=== PATIENT | female | born 1980 | race African-American/Black ===

== ENCOUNTER 2017-06-15 11:32 | Emergency (ER) | payer MEDICAID ==
[~2017-06-15] VITALS: Ht 160 cm; Wt 90.5 kg
[2017-06-15 11:35] VITALS: BP 130/87; PULSE 95; RESP 12; TEMP 98.1; O2SAT 98
[2017-06-15 12:26] LABS: ALT (GPT) 18 U/L (10-53); ANION GAP 5 MEQ/L (5-15); AST (GOT) 8 U/L (15-37); BICARBONATE 28.6 MEQ/L (21.0-32.0); BLOOD UREA NITROGEN 15 MG/DL (7-18); CHLORIDE 104 MEQ/L (98-107); GLOMERULAR FILTRATION RATE 67 ML/MIN (>89); POTASSIUM 3.7 MEQ/L (3.5-5.1); SODIUM (NA) 138 MEQ/L (136-145)
[2017-06-15 12:29] LABS: ALKALINE PHOSPHATASE 109 U/L (45-117); TOTAL BILIRUBIN ADULT 0.2 MG/DL (0.2-1.0)
[2017-06-15 13:12] LABS: AUTOMATED NEUTROPHIL # 8.5 TH/MM3 (1.8-7.7); BASOPHIL # 0.1 TH/MM3 (0-0.2); BASOPHIL % 0.4 % (0.0-2.0); EOSINOPHIL # 0.1 TH/MM3 (0-0.4); HEMATOCRIT 34.4 % (35.0-46.0); HEMO FLAGS DIFF FINAL; LYMPH % 17.8 % (9.0-44.0); LYMPHOCYTE # 2.1 TH/MM3 (1.0-4.8); MEAN CELL VOLUME 80.4 FL (80.0-100.0); MEAN CORPUSCULAR HEMOGLOBIN 26.4 PG (27.0-34.0); MEAN CORPUSCULAR HGB CONC 32.8 % (32.0-36.0); NEUT % 70.8 % (16.0-70.0); PLATELET COUNT 229 TH/MM3 (150-450); RED BLOOD COUNT 4.28 MIL/MM3 (4.00-5.30); RED CELL DISTRIBUTION WIDTH 14.1 % (11.6-17.2); WHITE BLOOD COUNT 12.1 TH/MM3 (4.0-11.0)
--- NOTE | 2017-06-15 15:04 | PD ---
HPI Chief Complaint: Headache Time Seen by Provider: 14:41 Travel History International Travel<30 days: No Contact w/Intl Traveler<30days: No Traveled to known affect area: No History of Present Illness HPI 36-year-old female with PMH of HTN, chronic back pain presents to ED for evaluation of global headache. Gradual onset 12 days ago after the patient had lumbar epidural steroid injection in [place]. She endorses accompanying blurred vision, photophobia, nausea. She also complains of back pain, weakness and unsteady gait. She endorses chills but has not measured her temperature at home. She was seen at the hospital in [place] 4 days ago and prescribed Zofran and ibuprofen. She's been noncompliant with these medications , stating "they didn't help." PFSH Past Medical History ?: Not LMP: 05/21/17 Social History Tobacco Use: No Allergies-Medications (Allergen,Severity, Reaction): Coded Allergies: No Known Allergies (Unverified , 06/15/17) Reported Meds & Prescriptions Reported Meds & Active Scripts Active Flexeril (Cyclobenzaprine HCl) 7.5 Mg Tab 7.5 Mg PO TID Ibuprofen 800 Mg Tab 800 Mg PO Q8H PRN Review of Systems Except as stated in HPI: all other systems reviewed are Neg Physical Exam Narrative GENERAL: Well-nourished, well-developed obese black female in no acute distress. SKIN: Focused skin assessment warm/dry. HEAD: Normocephalic. EYES: No scleral icterus. No injection or drainage. NECK: Supple, trachea midline. No JVD or lymphadenopathy. No nuchal rigidity. No midline tenderness to palpation. Patient remains full, active, painless ROM of the neck. CARDIOVASCULAR: Regular rate and rhythm without murmurs, gallops, or rubs. RESPIRATORY: Breath sounds clear and equal bilaterally. No accessory muscle use. GASTROINTESTINAL: Abdomen soft, non-tender, nondistended. MUSCULOSKELETAL: No cyanosis, or edema. NEUROLOGICAL: Awake and alert. Cranial nerves II through XII intact. Motor and sensory grossly within normal limits. Five out of 5 muscle strength in all muscle groups. Normal speech. BACK: No obvious deformity. Tender to palpation of the midline thoracic and lumbar spine. Tender to palpation of the paraspinal musculature bilaterally. Data Data Last Documented VS Vital Signs Date Time Temp Pulse Resp B/P (MAP) Pulse Ox O2 Delivery O2 Flow Rate FiO2 06/15/17 11:35 98.1 95 12 130/87 (101) 98 Orders Orders Complete Blood Count With Diff (06/15/17 11:46) Comprehensive Metabolic Panel (06/15/17 11:46) C-Reactive Protein (Crp) (06/15/17 11:46) Lipase (06/15/17 11:46) Iv Access Insert/Monitor (06/15/17 15:15) Morphine Inj (Morphine Inj) (06/15/17 15:15) Ondansetron Inj (Zofran Inj) (06/15/17 15:15) Sodium Chlorid 0.9% 500 Ml Inj (Ns 500 M (06/15/17 15:15) Ed Discharge Order (06/15/17 17:45) Labs Laboratory Tests Test 06/15/17 11:50 06/15/17 12:35 Blood Urea Nitrogen 15 MG/DL Creatinine 0.96 MG/DL Random Glucose 72 MG/DL Total Protein 8.3 GM/DL Albumin 3.3 GM/DL Calcium Level 8.7 MG/DL Alkaline Phosphatase 109 U/L Aspartate Amino Transf (AST/SGOT) 8 U/L Alanine Aminotransferase (ALT/SGPT) 18 U/L Total Bilirubin 0.2 MG/DL Sodium Level 138 MEQ/L Potassium Level 3.7 MEQ/L Chloride Level 104 MEQ/L Carbon Dioxide Level 28.6 MEQ/L Anion Gap 5 MEQ/L Estimat Glomerular Filtration Rate 67 ML/MIN C-Reactive Protein 2.62 MG/DL Lipase 111 U/L White Blood Count 12.1 TH/MM3 Red Blood Count 4.28 MIL/MM3 Hemoglobin 11.3 GM/DL Hematocrit 34.4 % Mean Corpuscular Volume 80.4 FL Mean Corpuscular Hemoglobin 26.4 PG Mean Corpuscular Hemoglobin Concent 32.8 % Red Cell Distribution Width 14.1 % Platelet Count 229 TH/MM3 Mean Platelet Volume 7.9 FL Neutrophils (%) (Auto) 70.8 % Lymphocytes (%) (Auto) 17.8 % Monocytes (%) (Auto) 10.0 % Eosinophils (%) (Auto) 1.0 % Basophils (%) (Auto) 0.4 % Neutrophils # (Auto) 8.5 TH/MM3 Lymphocytes # (Auto) 2.1 TH/MM3 Monocytes # (Auto) 1.2 TH/MM3 Eosinophils # (Auto) 0.1 TH/MM3 Basophils # (Auto) 0.1 TH/MM3 CBC Comment DIFF FINAL Differential Comment MDM Medical Decision Making Medical Screen Exam Complete: Yes Emergency Medical Condition: Yes Differential Diagnosis Musculoskeletal pain versus postinjection headache versus cephalgia versus dural puncture versus spinal epidural abscess versus other Narrative Course 36-year-old female with PMH of HTN, chronic back pain presents to ED for evaluation of 8 10 global headache. Gradual onset 12 days ago after the patient had lumbar epidural steroid injection in [place]. She endorses accompanying blurred vision, photophobia, nausea. She also complains of back pain, weakness and unsteady gait. She endorses chills but has not measured her temperature at home. Her headache was treated a few days ago in [place], she's been noncompliant with anti-inflammatories, stating "they don't help." Vitals reviewed. Physical exam reveals a nontoxic-appearing black female in no acute distress. There is no focal neuro deficits. No nuchal rigidity. No tenderness to palpation in the C-spine. She does have tenderness to palpation over the entire back, including the midline. Protocols were ordered in triage. IV was established. Patient was administered 4 mg morphine, 4 mg Zofran and 500 mL normal saline IV. CBC: WBC 12.1 with a left shift. Hemoglobin 11.3 CMP: No concerning abnormalities CRP: 2.62 Spinal MRIs ordered in an attempt to rule out epidural abscess. The patient was taken to radiology, however refused MRI. She was returned to the unit and I explained the importance of the study and offer her Ativan which she refused. She states that she would like to have her headache treated and have a note for work. She is provided a short course of ibuprofen and Flexeril. She was given strict instructions to return to the ED should her symptoms worsen. I discussed the complications of spinal epidural abscess, up to and including . The patient acknowledged understanding of the risks, but chose to leave AGAINST MEDICAL ADVICE. Diagnosis Primary Impression: Cephalgia Qualified Codes: R51 - Headache Additional Impression: Back pain Qualified Codes: M54.9 - Dorsalgia, unspecified Referrals: Primary Care Physician Patient Instructions: Acute Headache (ED), General Instructions Additional Instructions: A mixture of rest and activity is best for back pain. Resume normal, gentle activities as tolerated. Take medication as prescribed. Follow-up with the primary care provider. Return to the ED for worsening symptoms including fevers, neurologic symptoms. Return to the ED for any urgent or emergent medical condition. Med/Other Pt SpecificInfo: Prescription(s) given Scripts Cyclobenzaprine (Flexeril) 7.5 Mg Tab 7.5 MG PO TID for Muscle Spasm, #15 TAB 0 Refills Prov: Rahul Xie MD 06/15/17 Ibuprofen (Ibuprofen) 800 Mg Tab 800 MG PO Q8H Y for Pain/Inflammation, #15 TAB 0 Refills Prov: Rahul Xie MD 06/15/17 Disposition: 07 AGAINST MEDICAL ADVICE Condition: Stable Lila Sellers Jun 15, 2017 15:04
[2017-06-15] MEDS ORDERED: ONDANSETRON HCL 4 MG/2 ML VIAL IV PUSH ONE (15:15)
[2017-06-15] MEDS ORDERED: MORPHINE SULFATE 4 MG/ML INJ IV PUSH ONE (15:15)
[2017-06-15] MEDS ORDERED: SODIUM CHLORID 0.9% 500 ML INJ 500 ML IV ONE (15:15)
[2017-06-15] MEDS ORDERED: IBUP1TAB7 PO (17:40)
[2017-06-15] MEDS ORDERED: CYCL7.5T33 PO (17:40)
== END 2017-06-15 19:24 | disposition left against medical advice (07) ==
LOC: NEPC 11:32
DX: R51 Headache (principal); M54.9 Dorsalgia, unspecified; H53.8 Other visual disturbances; H53.149 Visual discomfort, unspecified; R11.0 Nausea; R53.1 Weakness; R26.9 Unspecified abnormalities of gait and mobility; I10 Essential (primary) hypertension
CPT/HCPCS: 80053; 83690; 85025; 86140; 96374; 96375; 99284; J2270; J2405; J7040